=== PATIENT | female | born 1950 | race Two or more races ===

== ENCOUNTER 2018-11-02 07:35 | Outpatient (CLI) | payer OTHER ==
[~2018-11-02 07:35] MED LIST: IMODIUM A-D2 MG PO; MULTIVITAMINAS; PEPCID40 MG PO; PREVACID; ZOFRAN4 MG PO
== END 2018-11-02 07:41 | disposition home or self-care (01) ==
LOC: MAMO-SONO 07:35
DX: N60.19 Diffuse cystic mastopathy of unspecified breast (principal); Z12.31 Encounter for screening mammogram for malignant neoplasm of breast; Z87.898 Personal history of other specified conditions

== ENCOUNTER 2019-12-13 07:01 | Day surgery (SDC) | payer OTHER | END 2019-12-13 10:30 | disposition home or self-care (01) | LOC: AMB-ENDOS 07:01 | PROVIDERS: ATTEND Surgery | DX: K62.7 Radiation proctitis (principal); K62.4 Stenosis of anus and rectum; K62.89 Other specified diseases of anus and rectum; K64.8 Other hemorrhoids; Z20.828 Contact with and (suspected) exposure to other viral communicable diseases ==

== ENCOUNTER 2020-04-03 09:57 | Outpatient (CLI) | payer OTHER | END 2020-04-03 10:09 | disposition home or self-care (01) | LOC: MAMO-SONO 09:57 | PROVIDERS: ATTEND General Practice | DX: N60.02 Solitary cyst of left breast (principal); Z12.31 Encounter for screening mammogram for malignant neoplasm of breast; N64.59 Other signs and symptoms in breast ==

== ENCOUNTER 2020-06-27 10:15 | Outpatient (CLI) | payer OTHER | END 2020-06-27 10:23 | disposition home or self-care (01) | LOC: TOM 10:15 | PROVIDERS: ATTEND Internal Medicine | DX: N20.0 Calculus of kidney (principal) ==

== ENCOUNTER → 2020-06-27 | Outpatient (CLI) | payer OTHER | END | disposition home or self-care (01) | LOC: NUCLEAR 09:13 | DX: I73.9 Peripheral vascular disease, unspecified (principal); I87.2 Venous insufficiency (chronic) (peripheral) ==

== ENCOUNTER 2020-09-12 07:56 | Outpatient (CLI) | payer OTHER | END 2020-09-12 08:14 | disposition home or self-care (01) | LOC: RAD 07:56 → MAMO-SONO 08:15 | PROVIDERS: ATTEND General Practice | DX: M25.521 Pain in right elbow (principal) ==

== ENCOUNTER 2021-04-09 07:35 | Outpatient (CLI) | payer OTHER | END 2021-04-09 07:39 | disposition home or self-care (01) | LOC: MAMO-SONO 07:35 | PROVIDERS: ATTEND General Practice | DX: N60.11 Diffuse cystic mastopathy of right breast (principal); Z12.31 Encounter for screening mammogram for malignant neoplasm of breast ==

== ENCOUNTER 2021-11-05 10:43 | Inpatient (IN) | payer OTHER ==
[~2021-11-05] VITALS: Ht 165.1 cm; Wt 60.8 kg
[2021-11-05] MEDS ORDERED: DETROL LA4 MG PO (11:44)
[2021-11-05] MEDS ORDERED: NORVASC5 MG PO (11:44)
[2021-11-05] MEDS ORDERED: VITAMIN D310 MCG/11 PO (11:46)
== END 2021-11-14 12:41 | disposition designated cancer center or children's hospital (05) | DRG 694 ==
LOC: ER 10:43 → MEDJ 11-06 00:58
PROVIDERS: ADMIT Internal Medicine; ATTEND Internal Medicine
PROC: BR3CZZZ Magnetic Resonance Imaging (MRI) of Pelvis (ICD-10-PCS; principal; 2021-11-10)
DX: N13.0 Hydronephrosis with ureteropelvic junction obstruction (principal); N82.0 Vesicovaginal fistula; C79.82 Secondary malignant neoplasm of genital organs; C78.5 Secondary malignant neoplasm of large intestine and rectum; C54.1 Malignant neoplasm of endometrium; N39.0 Urinary tract infection, site not specified; E87.6 Hypokalemia; R33.8 Other retention of urine; B95.2 Enterococcus as the cause of diseases classified elsewhere; D63.0 Anemia in neoplastic disease; E78.5 Hyperlipidemia, unspecified; I10 Essential (primary) hypertension; Z20.822 Contact with and (suspected) exposure to COVID-19
CPT/HCPCS: 72198